=== PATIENT | male | born 1975 | race Caucasian/White ===

== ENCOUNTER 2024-12-06 08:42 | Emergency (ER) | payer BC ==
[2024-12-06 09:42] LABS: Basophils % (A) 0 %; Eosinophils # (A) 0.1 k/uL (0-0.7); Eosinophils % (A) 1 %; HGB 12.9 gm/dL (13.0-17.5); Lymphocytes # (A) 1.3 k/uL (1.0-4.8); Lymphocytes % (A) 13 %; MCHC 32.4 g/dL (31.0-37.0); MCV 89.7 fL (80.0-100.0); Mean Platelet Volume 6.9; Monocytes # (A) 1.1 k/uL (0-1.0); Monocytes % (A) 11 %; Neutrophils # (A) 7.3 k/uL (1.3-7.7); Neutrophils % (A) 72 %; Platelet Count 339 k/uL (150-450); RBC 4.46 m/uL (4.30-5.90); RDW 11.8 % (11.5-15.5); WBC 10.2 k/uL (3.8-10.6)
[2024-12-06] MEDS: DEXAMETHASONE SOD PHOSPHATE 10 MG/ML 1 ML VIAL IVP STA (09:53)
[2024-12-06] MEDS: KETOROLAC 15 MG/ML 1 ML VIAL IVP STA (09:53)
[2024-12-06 09:54] LABS: ALT 86 U/L (4-49); AST 76 U/L (17-59); African American GFR (CKD) >90 (>60 ml/min/1.73 sqM); Albumin 3.9 g/dL (3.5-5.0); Alkaline Phosphatase 59 U/L (38-126); Anion Gap 9 mmol/L; Blood Urea Nitrogen 15 mg/dL (9-20); Calcium 9.2 mg/dL (8.4-10.2); Carbon Dioxide 27 mmol/L (22-30); Chloride 98 mmol/L (98-107); Glucose 113 mg/dL (74-99); Non-African American GFR(CKD) >90 (>60 ml/min/1.73 sqM); Potassium 4.6 mmol/L (3.5-5.1); Sodium 134 mmol/L (137-145); Total Bilirubin 0.9 mg/dL (0.2-1.3); Total Protein 7.3 g/dL (6.3-8.2)
[2024-12-06] MEDS: HYDROmorphone 0.5 MG/0.5 ML SYRINGE IVP STA (09:54)
--- NOTE | 2024-12-06 11:20 | CT ---
EXAMINATION TYPE: CT soft tissue neck w con DATE OF EXAM: 12/06/2024 10:43 AM COMPARISON: None. CLINICAL INDICATION: Male, 49 years old with history of left sided swelling throat, Left sided throat swelling and sore throat TECHNIQUE: Axial images at 3 mm thick sections. Reconstructed images in the coronal plane and sagitt al plane are reviewed. Contrast used:100 ml mL of Isovue 300 with IV Contrast, (none if empty) Oral contrast used: (none if empty) CT DLP: 307.4 mGycm, Automated exposure control for dose reduction was used. FINDINGS: Limited CT sections are obtained the lung apices. The lung apices appear clear. CT neck: The torus tubarius and fossa of Rosenmuller are normal. Utility Service Worker spaces are normal. Para nasal sinuses and mastoid air cells are clear. Parotid glands appear normal and symmetrical. Submandibular glands, are normal. Parapharyngeal spac es are normal. There is a 1.1 cm lymph node in the jugulodigastric region on left. There is a more inferior 1.3 cm l ymph node posterior to the submandibular gland and inferior to the parotid which is enlarged. Additio nal shotty lymphadenopathy is the right neck. There is impression on the left side of the neck from the posterior nasopharynx to the hypopharynx. T here is a small hypodense area within ill-defined masslike density measuring 1.0 cm. Series 201, imag e 61. Small abscess or necrosis at the level of the mylohyoid musculature at the floor of the oral ph arynx may be present. Correlate for mass versus infection. Vocal cord level appear symmetrical. Thyroid as visualized is normal. Osseous structures are normal. Some degenerative disc changes present C5-6. IMPRESSION: 1. Soft tissue density in the left tonsillar pillar region with effacement of the left posterior oral pharynx and hypopharynx. This is heterogenous and multiple enlarged left-sided lymph nodes are prese nt. Differential could include infection and underlying mass. Additional workup is recommended. [facility], , 12/06/2024 11:18 AM
--- NOTE | 2024-12-06 11:37 | ED ---
ENT HPI - General Chief complaint: ENT Stated complaint: sore throat Time Seen by Provider: 12/06/24 09:00 Source: patient, RN notes reviewed Mode of arrival: ambulatory Limitations: no limitations - History of Present Illness Initial comments: 49-year-old male presents emerged part tonight sore throat. Patient sent here from urgent care for evaluation of possible peritonsillar abscess. Patient states that he started recently with sore throat which is worsening, swelling the left. Patient states he has pain along his jawline. Patient reports fever no congestion no cough. - Related Data Previous Rx's Medication Instructions Recorded Amoxic-Pot Clav 875-125Mg 1 tab PO Q12HR #20 tab 12/06/24 [Augmentin 875-125] Allergies Allergy/AdvReac Type Severity Reaction Status Date / Time No Known Allergies Allergy Verified 12/06/24 09:07 Review of Systems ROS Statement: Those systems with pertinent positive or pertinent negative responses have been documented in the HPI. ROS Other: All systems not noted in ROS Statement are negative. Past Medical History Past Medical History: No Reported History History of Any Multi-Drug Resistant Organisms: None Reported Past Surgical History: No Surgical Hx Reported Past Psychological History: No Psychological Hx Reported Smoking Status: Never smoker Past Alcohol Use History: Daily Past Drug Use History: Marijuana General Exam Limitations: no limitations General appearance: alert, in no apparent distress Head exam: Present: atraumatic, normocephalic, normal inspection Eye exam: Present: normal appearance, PERRL, EOMI. Absent: scleral icterus, conjunctival injection, periorbital swelling ENT exam: Present: mucous membranes moist, TM's normal bilaterally, normal external ear exam. Absent: normal oropharynx (Left peritonsillar swelling, erythema noted) Neck exam: Present: normal inspection, full ROM. Absent: tenderness, meningismus, lymphadenopathy Respiratory exam: Present: normal lung sounds bilaterally. Absent: respiratory distress, wheezes, rales, rhonchi, stridor Cardiovascular Exam: Present: normal rhythm, tachycardia, normal heart sounds. Absent: systolic murmur, diastolic murmur, rubs, gallop, clicks Course Vital Signs 12/06/24 12/06/24 09:05 10:49 Temperature 99.4 F 99.1 F Pulse Rate 116 H 68 Respiratory 20 20 Rate Blood Pressure 137/97 130/79 O2 Sat by Pulse 99 99 Oximetry Medical Decision Making - Medical Decision Making Was pt. sent in by a medical professional or institution ([facility], GIS PROGRAMMER, urgent care, hospital, or skilled nursing...) When possible be specific @Urgent care Did you speak to anyone other than the patient for history (EMS, parent, family, police, friend...)? What history was obtained from this source @ -No Did you review nursing and triage notes (agree or disagree)? Why? @ -I reviewed and agree with nursing and triage notes Were old charts reviewed (outside hosp., previous admission, EMS record, old EKG, old radiological studies, urgent care reports/EKG's, skilled nursing records)? Report findings @ -No old charts were reviewed Differential Diagnosis (chest pain, altered mental status, abdominal pain women, abdominal pain men, vaginal bleeding, weakness, fever, dyspnea, syncope, headache, dizziness, GI bleed, back pain, seizure, CVA, palpatations, mental health, musculoskeletal)? @ -Strep pharyngitis, tonsillitis, peritonsillar abscess EKG interpreted by me (3pts min.). @ -None X-rays interpreted by me (1pt min.). @ -None done CT interpreted by me (1pt min.). @ -CT soft tissue neck with contrast showing left tonsillar swelling, no definite abscess, infection versus underlying mass. U/S interpreted by me (1pt. min.). @ -None done What testing was considered but not performed or refused? (CT, X-rays, U/S, labs)? Why? @ -None What meds were considered but not given or refused? Why? @ -None Did you discuss the management of the patient with other professionals (professionals i.e. [facility] Mccray, GIS PROGRAMMER, lab, RT, psych nurse, social research assistant, electrician substation supervisor, t eacher, learning and development officer, case picker)? Give summary @ -No Was smoking cessation discussed for >3mins.? @ -No Was critical care preformed (if so, how long)? @ -No Were there social determinants of health that impacted care today? How? (Homelessness, low income, unemployed, alcoholism, drug addiction, transportation, low edu. Level, literacy, decrease access to med. care, penitentiary, rehab)? @ -No Was there de-escalation of care discussed even if they declined (Discuss DNR or withdrawal of care, Hospice)? DNR status @ -No What co-morbidities impacted this encounter? (DM, HTN, Smoking, COPD, CAD, Cance r, CVA, ARF, Chemo, Hep., AIDS, mental health diagnosis, sleep apnea, morbid obesity)? @ -None Was patient admitted / discharged? Hospital course, mention meds given and route, prescriptions, significant lab abnormalities, going to OR and other pertinent info. @ -Discharge patient does have large amount of left peritonsillar region there is no definite abscess patient was placed on antibiotics patient did get dexamethasone, Rocephin emergency department. Patient will follow-up with ENT on-call Dr. Washington return parameters geoff. Undiagnosed new problem with uncertain prognosis? @ -No Drug Therapy requiring intensive monitoring for toxicity (Heparin, Nitro, Insulin, Cardizem)? @ -No Were any procedures done? @ -No Diagnosis/symptom? @ -Strep pharyngitis Acute, or Chronic, or Acute on Chronic? @ -Acute Uncomplicated (without systemic symptoms) or Complicated (systemic symptoms)? @ -Uncomplicated Side effects of treatment? @ -No Exacerbation, Progression, or Severe Exacerbation? @ -No Poses a threat to life or bodily function? How? (Chest pain, [place], [place], pneumonia, PE, COPD, DKA, ARF, appy, cholecystitis, CVA, Diverticulitis, Homicidal, Suicidal, threat to staff... and all critical care pts) @ -No - Lab Data Result diagrams: 12/06/24 09:32 12/06/24 09:32 Lab Results 12/06/24 12/06/24 12/06/24 Range/Units 09:32 09:32 09:38 WBC 10.2 (3.8-10.6) k/uL RBC 4.46 (4.30-5.90) m/uL Hgb 12.9 L (13.0-17.5) gm/dL Hct 40.0 (39.0-53.0) % MCV 89.7 (80.0-100.0) fL MCH 29.0 (25.0-35.0) pg MCHC 32.4 (31.0-37.0) g/dL RDW 11.8 (11.5-15.5) % Plt Count 339 (150-450) k/uL MPV 6.9 Neutrophils % 72 % Lymphocytes % 13 % Monocytes % 11 % Eosinophils % 1 % Basophils % 0 % Neutrophils # 7.3 (1.3-7.7) k/uL Lymphocytes # 1.3 (1.0-4.8) k/uL Monocytes # 1.1 H (0-1.0) k/uL Eosinophils # 0.1 (0-0.7) k/uL Basophils # 0.0 (0-0.2) k/uL Sodium 134 L (137-145) mmol/L Potassium 4.6 (3.5-5.1) mmol/L Chloride 98 (98-107) mmol/L Carbon Dioxide 27 (22-30) mmol/L Anion Gap 9 mmol/L BUN 15 (9-20) mg/dL Creatinine 0.76 (0.66-1.25) mg/dL Est GFR (CKD-EPI)AfAm >90 (>60 ml/min/1.73 sqM) Est GFR (CKD-EPI)NonAf >90 (>60 ml/min/1.73 sqM) Glucose 113 H (74-99) mg/dL Calcium 9.2 (8.4-10.2) mg/dL Total Bilirubin 0.9 (0.2-1.3) mg/dL AST 76 H (17-59) U/L ALT 86 H (4-49) U/L Alkaline Phosphatase 59 (38-126) U/L Total Protein 7.3 (6.3-8.2) g/dL Albumin 3.9 (3.5-5.0) g/dL Group A Strep (PCR) DETECTED A (Not Detectd) Disposition Clinical Impression: Strep pharyngitis, Lymphadenopathy Disposition: HOME SELF-CARE Condition: Stable Instructions (If sedation given, give patient instructions): Strep Throat (ED) Additional Instructions: please return to the Emergency Department if symptoms worsen or any other concerns. Prescriptions: Amoxic-Pot Clav 875-125Mg [Augmentin 875-125] 1 tab PO Q12HR #20 tab Is patient prescribed a controlled substance at d/c from ED?: No Referrals: Brandon Cisneros MD [Primary Care Provider] - 1-2 days Joe Davis MD [STAFF PHYSICIAN] - 1-2 days Time of Disposition: 11:37
[2024-12-06 12:21] VITALS: BP 128/78; PULSE 72; RESP 18; TEMP 97.9
== END 2024-12-06 12:10 | disposition home or self-care (01) ==
LOC: EC 08:42
DX: J02.0 Streptococcal pharyngitis (principal); B95.0 Streptococcus, group A, as the cause of diseases classified elsewhere; R59.1 Generalized enlarged lymph nodes
CPT/HCPCS: 36415; 87651; 80053; 85025; 70491; 99284; 96374; 96375 ×3; J1100; J0696; J1885; J1171; Q9967

== ENCOUNTER 2024-12-09 13:42 | Emergency (ER) | payer BC ==
[2024-12-09] MEDS: HYDROmorphone 1 MG/ML 1 ML SYRINGE IM STA (15:17)
[2024-12-09] MEDS: KETOROLAC 15 MG/ML 1 ML VIAL IM STA (15:18)
[2024-12-09] MEDS: BENZOCAINE SPRAY 1 CAN MUCOUS MEM STA (15:31)
[2024-12-09] MEDS ORDERED: PENICILLIN G BENZATHINE 1,200,000 UNIT/2 ML SYRINGE IM STA (15:57)
--- NOTE | 2024-12-09 15:59 | ED ---
ENT HPI - General Source: patient, RN notes reviewed Mode of arrival: ambulatory Limitations: no limitations <Mackenzie He - Last Filed: 12/13/24 07:12> <Mal Ng - Last Filed: 12/15/24 07:44> - General Chief complaint: ENT Stated complaint: sore throat Time Seen by Provider: 12/09/24 15:02 - History of Present Illness Initial comments: This is a 49-year-old male who presents to the emergency department for a sore throat. He was evaluated here for this on 12/06 and diagnosed with strep throat. There was concern about a peritonsillar abscess, however it could not be definitively identified on the CT scan. He was started on Augmentin. States that since taking this, he continues to get worse. He is concerned that he cannot swallow and he feels like it is starting to get hard to breathe. (Mackenzie He) - Related Data Previous Rx's Medication Instructions Recorded Amoxic-Pot Clav 875-125Mg 1 tab PO Q12HR #20 tab 12/06/24 [Augmentin 875-125] Allergies Allergy/AdvReac Type Severity Reaction Status Date / Time No Known Allergies Allergy Verified 12/09/24 14:26 Review of Systems ROS Other: All systems not noted in ROS Statement are negative. <Mackenzie He - Last Filed: 12/13/24 07:12> ROS Other: All systems not noted in ROS Statement are negative. <Mal Ng - Last Filed: 12/15/24 07:44> ROS Statement: Those systems with pertinent positive or pertinent negative responses have been documented in the HPI. Past Medical History Past Medical History: No Reported History History of Any Multi-Drug Resistant Organisms: None Reported Past Surgical History: No Surgical Hx Reported Past Psychological History: No Psychological Hx Reported Smoking Status: Never smoker Past Alcohol Use History: Daily Past Drug Use History: Marijuana <Mackenzie He - Last Filed: 12/13/24 07:12> General Exam Limitations: no limitations General appearance: alert, in no apparent distress Head exam: Present: atraumatic, normocephalic, normal inspection ENT exam: Present: other (Posterior pharyngeal erythema with bilateral tonsillar hypertrophy, particularly larger on the left with deviation of the uvula concerning for peritonsillar abscess) Respiratory exam: Present: normal lung sounds bilaterally. Absent: respiratory distress, wheezes, rales, rhonchi, stridor Cardiovascular Exam: Present: regular rate, normal rhythm Neurological exam: Present: alert, oriented X3, CN II-XII intact Psychiatric exam: Present: normal affect, normal mood Skin exam: Present: warm, dry, intact, normal color. Absent: rash <Mackenzie He - Last Filed: 12/13/24 07:12> Course Vital Signs 12/09/24 12/09/24 14:22 16:33 Temperature 98.5 F 98.1 F Pulse Rate 124 H 98 Respiratory 18 22 Rate Blood Pressure 131/85 129/83 O2 Sat by Pulse 98 97 Oximetry Medical Decision Making <Mackenzie He - Last Filed: 12/13/24 07:12> <Mal Ng - Last Filed: 12/15/24 07:44> - Medical Decision Making This is a 49-year-old male who presents to the emergency department for a sore throat. Was pt. sent in by a medical professional or institution? @ -No Did you speak to anyone other than the patient for history? @ -No Did you review nursing and triage notes? @ -Yes, and I agree, it is accurate with regards to the patient's symptoms. Were old charts reviewed? @ -CT soft tissue neck from 12/06/2024 demonstrating a soft tissue density in the left peritonsillar region with effacement of the left posterior oropharynx and hypopharynx. Differential Diagnosis? @ -Differential Sore Throat: Strep pharyngitis, herpes zoster, COVID, influenza, GERD, allergic rhinitis, mononucleosis, this is not meant to be an all-inclusive list. EKG interpreted by me (3pts min.)? @ -Not obtained X-rays interpreted by me (1pt min.)? @ -Not obtained CT interpreted by me (1pt min.)? @ -Not obtained U/S interpreted by me (1pt. min.)? @ -Not obtained What testing was considered but not performed? (CT, X-rays, U/S, labs)? Why? @ -None What meds were considered but not given? Why? @ -None Did you discuss the management of the patient with other professionals? @ -No Did you reconcile home meds? @ -No Was smoking cessation discussed for >3mins.? @ -No Was critical care preformed (if so, how long)? @ -No Were there social determinants of health that impacted care today? How? (Homelessness, low income, unemployed, alcoholism, drug addiction, transportation, low edu. Level, literacy, decrease access to med. care, [facility], rehab)? @ -No Was there de-escalation of care discussed even if they declined? (Discuss DNR or withdrawal of care, Hospice)? @ -No What co-morbidities impacted this encounter? (DM, HTN, Smoking, COPD, CAD, Cancer, CVA, Hep., AIDS, mental health diagnosis, sleep apnea, morbid obesity)? @ -None Was patient admitted / discharged? @ -Discharged. On examination, it did appear that the patient had a large left-sided peritonsillar abscess causing his symptoms. We were going to proceed with an incision and drainage, however as I was collecting the supplies I was told by nursing staff that it appeared to have popped. Patient believes that the initial pressure with a tongue depressor followed by the force of him coughing may have led to this. A large amount of purulent drainage was expressed from this. On reevaluation his throat looked substantially better. He also noted significant relief in symptoms. He was given a dose of Decadron and was able to eat and drink much easier than he could before. Advised he continue with the Augmentin as prescribed and follow-up with ENT. Patient discharged home in stable condition. Case discussed with ED attending Dr. Ng. Return precautions reviewed in depth, the patient is instructed to return to the emergency department with any new, worsening, or concerning symptoms. Patient verbalized understanding. Undiagnosed new problem with uncertain prognosis? @ -None Drug Therapy requiring intensive monitoring for toxicity (Heparin, Nitro, Insulin, Cardizem)? @ -None Were any procedures done? @ -None Diagnosis/symptom? @ -Left peritonsillar abscess Acute, or Chronic, or Acute on Chronic? @ -Acute Uncomplicated (without systemic symptoms) or Complicated (systemic symptoms)? @ -Uncomplicated Side effects of treatment? @ -None Exacerbation, Progression, or Severe Exacerbation] @ -Not applicable Poses a threat to life or bodily function? @ -Unlikely (Mackenzie He) I have reviewed all documentation, results, and performed the MDM in its entirety, which constitutes a substantive portion of the visit. (Mal Ng) Disposition Is patient prescribed a controlled substance at d/c from ED?: No Time of Disposition: 16:13 <Mackenzie He - Last Filed: 12/13/24 07:12> <Mal Ng - Last Filed: 12/15/24 07:44> Clinical Impression: Peritonsillar abscess Disposition: HOME SELF-CARE Condition: Good Instructions (If sedation given, give patient instructions): Peritonsillar Abscess (ED), Peritonsillar Abscess (DC) Additional Instructions: Return to the emergency department with any new, worsening, or concerning symptoms. Continue taking your antibiotic as prescribed. Follow up with your primary care provider in 1-2 days and with ENT. Referrals: Brandon Cisneros MD [Primary Care Provider] - 1-2 days Joe Davis MD [STAFF PHYSICIAN] - 1-2 days
[2024-12-09] MEDS: DEXAMETHASONE SOD PHOSPHATE 10 MG/ML 1 ML VIAL IM STA (16:09)
[2024-12-09] MEDS: PENICILLIN G BENZATHINE 1,200,000 UNIT/2 ML SYRINGE IM STA (16:24)
[2024-12-09] MEDS: ACET/COD 300 MG/30 MG STARTER PACK 6 TAB BTL PO STA (16:31)
[2024-12-09 16:35] VITALS: BP 129/83; PULSE 98; RESP 22; TEMP 98.1
== END 2024-12-09 16:36 | disposition home or self-care (01) ==
LOC: EC 13:42
DX: J36 Peritonsillar abscess (principal)
CPT/HCPCS: 99283; 96372; J0561; J1100; J1171; J1885